=== PATIENT | female | born 1980 | race Two or more races ===

== ENCOUNTER 2022-11-21 18:06 | Inpatient (IN) | payer MEDICAID ==
[~2022-11-21] VITALS: Ht 165.1 cm; Wt 82.4 kg
[2022-11-21 19:09] LABS: Basophils # (auto) 0.1 10 ^3/uL (0-0.2); Basophils % (auto) 0.8 % (0.0-2.0); Eosinophils # (auto) 0.1 10 ^3/uL (0-0.8); Eosinophils % (auto) 1.5 % (0.0-7.0); Hematocrit 19.1 % (36.0-46.0); Lymphocytes # (auto) 1.6 10 ^3/uL (0.4-5.4); Mean Corpuscular Hemoglobin 14.8 pg (28.0-32.0); Mean Corpuscular Hgb Conc. 27.7 g/dL (32.0-36.0); Mean Corpuscular Volume 53.6 fL (80.0-100.0); Monocytes # (auto) 0.8 10 ^3/uL (0-1.3); Monocytes % (auto) 8.2 % (0.0-12.0); Neutrophils # (auto) 6.8 10 ^3/uL (1.6-8.6); Neutrophils % (auto) 72.5 % (37.0-80.0); Nucleated Red Blood Cells % 0.1 %; Red Blood Cells 3.57 10^6/uL (4.0-5.20); White Blood Cell 9.3 10^3/uL (4.4-10.8)
[2022-11-21 19:10] LABS: Red Cell Distribution Width 20.7 % (11.8-14.3)
[2022-11-21 19:12] LABS: Hemoglobin 5.3 g/dL (12.2-16.2)
[2022-11-21 19:24] LABS: Albumin 3.9 g/dL (3.4-5.0); Calcium 9.8 mg/dL (8.5-10.1); Potassium 3.9 mmol/L (3.5-5.1)
[2022-11-21 19:28] LABS: BUN/Creatinine Ratio 13.5 (10.0-20.0); Bilirubin, Total 0.5 mg/dL (0.2-1.0); Total Protein 8.2 g/dL (6.4-8.2)
[2022-11-21 20:09] LABS: INR 0.97 (0.9-1.15); Partial Thromboplastin Time 26.3 sec (24.6-33.4)
[2022-11-21] MEDS ORDERED: TEMAZEPAM 15 MG CAP PO PRN (22:00)
[2022-11-21] MEDS ORDERED: ACETAMINOPHEN 325 MG TAB PO PRN (22:00)
[2022-11-21] MEDS ORDERED: ONDANSETRON HCL 4 MG/2 ML VIAL IV PRN (22:00)
[2022-11-22] VITALS (7 sets, daily range): BP systolic 123–134; BP diastolic 62–78
[2022-11-22 08:14] LABS: Basophils # (auto) 0.1 10 ^3/uL (0-0.2); Eosinophils # (auto) 0.2 10 ^3/uL (0-0.8); Hemoglobin 7.6 g/dL (12.2-16.2); Lymphocytes # (auto) 1.8 10 ^3/uL (0.4-5.4); Mean Corpuscular Hgb Conc. 29.8 g/dL (32.0-36.0); Monocytes # (auto) 0.7 10 ^3/uL (0-1.3); Red Blood Cells 4.21 10^6/uL (4.0-5.20)
[2022-11-22 08:17] LABS: Basophils % (auto) 0.8 % (0.0-2.0); Eosinophils % (auto) 2.5 % (0.0-7.0); Hematocrit 25.3 % (36.0-46.0); Lymphocytes % (auto) 20.6 % (10.0-50.0); Mean Corpuscular Volume 60.2 fL (80.0-100.0); Monocytes % (auto) 7.9 % (0.0-12.0); Neutrophils % (auto) 68.2 % (37.0-80.0); Nucleated Red Blood Cells % 0.1 %; White Blood Cell 8.8 10^3/uL (4.4-10.8)
[2022-11-22 08:23] LABS: Red Cell Distribution Width 31.3 % (11.8-14.3)
[2022-11-22 08:31] LABS: INR 1.03 (0.9-1.15); Partial Thromboplastin Time 30.3 sec (24.6-33.4)
[2022-11-22 08:54] LABS: BUN/Creatinine Ratio 17.8 (10.0-20.0); Calcium 9.8 mg/dL (8.5-10.1); Potassium 3.8 mmol/L (3.5-5.1)
[2022-11-22] MEDS: PANTOPRAZOLE 40 MG TAB PO SCH (09:48)
[2022-11-22] MEDS: PHENAZOPYRIDINE HCL 100 MG TAB PO SCH ×2 (13:08→18:20)
[2022-11-22] MEDS: ceFAZolin 1GM/50ML 50 ML IV SCH ×2 (14:33→21:27)
[2022-11-22 22:14] LABS: Urine Blood 3+ /uL (Negative); Urine Specific Gravity 1.018 (1.001-1.035); Urine WBC 1484 /hpf (0 - 5); Urine WBC Clumps PRESENT /hpf (None Seen)
[2022-11-22 22:15] LABS: Urine Bacteria FEW /hpf (None Seen)
[2022-11-23 05:15] VITALS: BP 130/78
[2022-11-23] MEDS: ceFAZolin 1GM/50ML 50 ML IV SCH (05:36)
[2022-11-23 06:35] LABS: Hemoglobin 7.5 g/dL (12.2-16.2); Monocytes # (auto) 0.7 10 ^3/uL (0-1.3)
[2022-11-23 06:38] LABS: Calcium 10.2 mg/dL (8.5-10.1); Potassium 4.4 mmol/L (3.5-5.1)
[2022-11-23 06:39] LABS: Basophils # (auto) 0.1 10 ^3/uL (0-0.2); Basophils % (auto) 0.8 % (0.0-2.0); Eosinophils # (auto) 0.3 10 ^3/uL (0-0.8); Eosinophils % (auto) 3.3 % (0.0-7.0); Hematocrit 25.7 % (36.0-46.0); Mean Corpuscular Hemoglobin 17.8 pg (28.0-32.0); Mean Corpuscular Hgb Conc. 29.2 g/dL (32.0-36.0); Mean Corpuscular Volume 60.9 fL (80.0-100.0); Monocytes % (auto) 8.3 % (0.0-12.0); Neutrophils # (auto) 5.4 10 ^3/uL (1.6-8.6); Neutrophils % (auto) 63.6 % (37.0-80.0); Nucleated Red Blood Cells % 0.1 %; Red Blood Cells 4.22 10^6/uL (4.0-5.20); White Blood Cell 8.5 10^3/uL (4.4-10.8)
[2022-11-23 06:41] LABS: BUN/Creatinine Ratio 15.7 (10.0-20.0)
[2022-11-23 07:34] LABS: Red Cell Distribution Width 29.8 % (11.8-14.3)
[2022-11-23] MEDS: PANTOPRAZOLE 40 MG TAB PO SCH (08:49)
[2022-11-23] MEDS: PHENAZOPYRIDINE HCL 100 MG TAB PO SCH ×2 (08:49→12:00)
[2022-11-23] MEDS ORDERED: NITR-52 PO (11:30)
[2022-11-23] MEDS ORDERED: FER325T PO (11:31)
== END 2022-11-23 12:45 | disposition home or self-care (01) | DRG 663 ==
LOC: ER 18:12 → OVERFLOW 21:51 → WEST WING 11-22 18:02
PROVIDERS: ADMIT Nurse Practitioner; ATTEND Internal Medicine Pulmonary Disease
PROC: 30233N1 Transfusion of Nonautologous Red Blood Cells into Peripheral Vein, Percutaneous Approach (ICD-10-PCS; principal; 2022-11-22)
DX: D62 Acute posthemorrhagic anemia (principal); D25.9 Leiomyoma of uterus, unspecified; Z83.3 Family history of diabetes mellitus
CPT/HCPCS: 36415; 76856; 80048; 80053; 81001; 85025; 85610; 85730; 86850; 86900; 86901; 86920; 96365; G0378; J0690